=== PATIENT | female | born 1950 | race African-American/Black ===

== ENCOUNTER 2024-05-08 18:43 | Emergency (ER) | payer OTHER ==
[~2024-05-08] VITALS: Ht 170.2 cm; Wt 90.7 kg
[2024-05-08 18:44] VITALS: TEMP 98.3
[2024-05-08] MEDS ORDERED: ACETAMINOPHEN 325 MG TABLET ONE (19:19)
[2024-05-08] MEDS: ACETAMINOPHEN 325 MG TABLET PO ONE (19:30)
[2024-05-08] MEDS ORDERED: oxyCODONE/APAP (5/325 MG) 1 UDTAB TABLET ONE ×2 (22:04→23:29)
[2024-05-08] MEDS: oxyCODONE/APAP (5/325 MG) 1 UDTAB TABLET PO ONE ×2 (22:12→23:35)
[2024-05-08 23:35] VITALS: BP 115/60; O2SAT 96
== END 2024-05-08 23:36 | disposition home or self-care (01) ==
LOC: ER 18:50
DX: M25.551 Pain in right hip (principal); E11.9 Type 2 diabetes mellitus without complications; E78.5 Hyperlipidemia, unspecified; Z96.643 Presence of artificial hip joint, bilateral
CPT/HCPCS: 73502; 73700-TC